=== PATIENT | female | born 1995 | race Caucasian/White ===

== ENCOUNTER 2024-05-10 14:26 | Emergency (ER) | payer MEDICAID, SELFPAY ==
[2024-05-10 14:28] VITALS: BP 150/95; PULSE 90; RESP 16; TEMP 36.8; O2SAT 97; BMI 32.2
--- NOTE | 2024-05-10 14:29 | ED_ITS ---
<Statement entered by Bailey Yousif DO - 05/10/24 17:55> I was consulted by the JAYESH, and we discussed the complexity of the problems being addressed. I approved the treatment and management plan for this patient's care in the emergency department, thus performing a substantive portion of the medical decision making. Bailey Yousif DO Discharge Plan Disposition Patient Disposition: Home, Self-Care Condition: Good Referrals Follow up/Referrals: Wallace Morataya DO [Staff Physician] - See instructions Provider,Referral, [Primary Care Provider] - See instructions Activity Restrictions/Add. Instructions Additional Instructions/Restrictions: Please utilize the crutches with walking boot to prevent injury. I have given you the number of Dr. Morataya the orthopedic surgeon. Please call and make your appointment in the morning. Follow-up with your PCP for no improvement worsening signs or symptoms or return to the ER as needed. Continue using ice Tylenol and Motrin to help control your swelling and pain. Keep leg elevated. Take an aspirin a day while you are utilizing the walking boot. Clinical Impressions Clinical Impression: Closed fracture of distal end of right fibula Qualifiers: Encounter type: initial encounter Fracture morphology: unspecified fracture morphology Qualified Code(s): S82.831A - Other fracture of upper and lower end of right fibula, initial encounter for closed fracture Print Language Print Language: Faroese Discharge ED Provider: Livan Cervantes General Adult HPI General Chief complaint: Extremity Injury, Lower Stated complaint: AO fall 05/09 @0600, right ankle pain Time Seen by Provider: 05/10/24 14:29 History of Present Illness HPI narrative: Patient presents for evaluation of right ankle injury. Patient states that she slipped yesterday twisting her right ankle. She felt a pop however has been able to bear weight although it is very painful. She denies any numbness tin gling fever chills hemoptysis hematochezia melena nausea vomit diarrhea. She denies any other injury. It hurts worse today than it did yesterday. Started turning colors which is why she came to the ER. Related Data Allergies Allergy/AdvReac Type Severity Reaction Status Date / Time No Known Allergies Allergy Verified 05/10/24 14:35 [facility] Disclaimer: The information contained in this section may have been updated after the sharona ent was seen, as this information can be updated by other users. Social History Smoking Status: Never smoker alcohol intake: never current occupational status: employed Travel in the last 8 weeks: None ROS Obtained: Yes Systems reviewed as appropriate & no additional complaints except as documented Physical Exam General General appearance: alert and in no apparent distress Respiratory Respiratory exam: Present normal lung sounds bilaterally Cardiovascular Cardiovascular exam: Present regular rate Neurological Exam Neurological exam: Present alert and oriented X3 Medical Decision Making Medical Records Screening: Per USPSTF and CDC recommendations, given the prevalence of disease in our region, it is our hospital?s policy to screen for HIV and viral Hepatitis for all patients aged 18 and over and those with ongoing risk factors. Ned Inquiry Pt receiving controlled substance: No Vital Signs: 05/10/24 14:28 05/10/24 15:00 05/10/24 15:31 Temperature 98.3 F Temperature Source Oral Pulse Rate 87 69 Pulse Rate [Radial] 90 Respiratory Rate 16 Blood Pressure 136/87 142/72 H Blood Pressure [Right Arm] 150/95 H Blood Pressure Mean [Right Arm] 113 Blood Pressure Source [Right Arm] Automatic Cuff Blood Pressure Position [Right Arm] Sitting 02 Sat by Pulse Oximetry 97 96 97 Oxygen Delivery Method Room Air Room Air Room Air Orders (Tests/Meds): ED MEDICATIONS Discontinued Medications Generic Name Dose Route Start Last Admin Trade Name Freq PRN Reason Stop Dose Admin Acetaminophen 1,000 mg 05/10/24 14:48 05/10/24 14:59 Acetaminophen 500mg Tab PO 05/10/24 14:49 1,000 mg ONCE ONE Administration Ibuprofen 800 mg 05/10/24 14:48 05/10/24 14:59 Ibuprofen 400 Mg Tablet PO 05/10/24 14:49 800 mg ONCE ONE Administration Oxycodone HCl 5 mg 05/10/24 15:35 Oxycodone 5mg Immediate Release Tablet PO 05/10/24 15:36 ONCE ONE ORDERS Category Date Time Status Ankle XR -Right minimum 3 Views [XR ankle RT min 3V] Exams 05/10/24 14:47 Taken Stat Tibia/fibula XR right 2 views [XR tibia fibula RT 2V] Exams 05/10/24 15:22 Taken Stat Medical Decision Narrative: In summary patient is a 28-year-old female who presents to the emergency department for evaluation of right ankle injury. Patient is hemodynamically stable upon arrival, afebrile. Physical exam is remarkable for significant ecchymosis and swelling at the lateral malleolus of the right ankle. She is very tender to palpation and no definitive bony deformity can be felt. Patient is neurovascular intact distally. She has positive DP and PT pulses. She does have passive range of motion fully. Differential diagnosis includes sprain versus fracture. Initial workup will be conducted with plain film x-rays. Initial interventions include Tylenol Motrin oxycodone. Initial workup reviewed by me shows a comminuted distal fibula fracture via my informal interpretation prior to radiology read. Given the distal fracture I have ordered an additional image to rule out any proximal fibular or tibia injury. My informal interpretation that film shows no other acute fracture. Given this patient is appropriate discharge being placed in a orthopedic walking boot with crutches and referral to orthopedics. Critical Care Critical Care Time Critical Care Time: No
--- NOTE | 2024-05-10 14:47 | XR_ITS ---
FINAL REPORT CLINICAL HISTORY: Twisted ankle, lateral malleolus pain COMPARISON: None FINDINGS: RIGHT ANKLE 3 views of the right ankle were obtained. There is a mildly displaced oblique fracture of the distal fibula occurring above the level of the ankle mortise. There is also a nondisplaced fracture of the posterior malleolus. The medial malleolus is intact. The mortise is intact. Visualized joint spaces are normally aligned. Soft tissues are unremarkable. IMPRESSION: Distal fibular shaft and posterior malleolar fractures. Reviewed, Interpreted and Dictated by James Vázquez MD Transcribed by Julianne Melo Authenticated and [facility]
[2024-05-10] MEDS: ACETAMINOPHEN 500MG TAB 1000 MG PO (14:59)
[2024-05-10] MEDS: IBUPROFEN 400 MG TABLET 800 MG PO (14:59)
[2024-05-10 15:00] VITALS: BP 136/87; PULSE 87; O2SAT 96
--- NOTE | 2024-05-10 15:22 | XR_ITS ---
FINAL REPORT CLINICAL HISTORY: Distal fibula fracture COMPARISON: None FINDINGS: Two views of the right tibia/fibula were obtained. There is an oblique fracture of the distal fibula. The tibia is intact. The joint spaces are intact. There is no soft tissue abnormality. IMPRESSION: Distal fibular fracture. Reviewed, Interpreted and Dictated by James Vázquez MD Transcribed by Julianne Melo Authenticated and [facility]
[2024-05-10 15:31] VITALS: BP 142/72; PULSE 69; O2SAT 97
[2024-05-10] MEDS: OXYCODONE 5MG IMMEDIATE RELEASE TABLET 5 MG PO (15:42)
[2024-05-10 15:58] VITALS: BP 142/72; PULSE 69; RESP 16; TEMP 36.8; O2SAT 97
== END 2024-05-10 15:59 | disposition home or self-care (01) ==
PROVIDERS: Emergency Provider Emergency Medicine
DX: S82.831A Other fracture of upper and lower end of right fibula, initial encounter for closed fracture (principal); M25.571 Pain in right ankle and joints of right foot; W01.0XXA Fall on same level from slipping, tripping and stumbling without subsequent striking against object, initial encounter; Y93.9 Activity, unspecified; Y92.9 Unspecified place or not applicable
CPT/HCPCS: 73590; 73610; 99283

== ENCOUNTER 2024-05-30 09:51 | Outpatient (CLI) | payer MEDICAID, SELFPAY ==
--- NOTE | 2024-05-30 09:55 | XR_ITS ---
FINAL REPORT CLINICAL HISTORY: rt ankle fx COMPARISON: 05/10/2024 FINDINGS: RIGHT ANKLE 3 views of the right ankle were obtained. The posterior malleolus and distal fibular fractures noted on the prior exam of 05/10/2024 remain present and are stable in appearance. The mortise is intact. Visualized joint spaces are normally aligned. The soft tissue swelling is slightly improved since the prior exam. IMPRESSION: Stable fractures of the posterior malleolus and distal fibula when compared with prior exam of 05/10/2024. Slight improvement in ankle soft tissue swelling. Reviewed, Interpreted and Dictated by Rick Lu MD Transcribed by Beulah Silva Authenticated and . [facility]
== END 2024-05-30 23:59 | disposition home or self-care (01) ==
LOC: RAD 09:52
PROVIDERS: Visit Provider Physician Assistant
DX: M25.571 Pain in right ankle and joints of right foot (principal)
CPT/HCPCS: 73610

== ENCOUNTER 2024-06-20 09:40 | Outpatient (CLI) | payer MEDICAID, SELFPAY ==
--- NOTE | 2024-06-20 09:43 | XR_ITS ---
FINAL REPORT CLINICAL HISTORY: Right ankle fx COMPARISON: 05/30/2024 FINDINGS: Three views of the right ankle redemonstrate an oblique fracture of the distal fibula with up to 2 mm of displacement. Reported posterior malleolus fracture is not well seen. The ankle mortise is intact. The joint spaces appear normal. IMPRESSION: No significant change in distal fibular fracture. Reviewed, Interpreted and Dictated by James Vázquez MD Transcribed by Julianne Melo Authenticated and [facility]
== END 2024-06-20 23:59 | disposition home or self-care (01) ==
LOC: RAD 09:41
PROVIDERS: Visit Provider Physician Assistant
DX: M25.571 Pain in right ankle and joints of right foot (principal); S82.831A Other fracture of upper and lower end of right fibula, initial encounter for closed fracture
CPT/HCPCS: 73610

== ENCOUNTER 2024-07-11 09:30 | Outpatient (CLI) | payer MEDICAID, SELFPAY ==
--- NOTE | 2024-07-11 09:33 | XR_ITS ---
FINAL REPORT CLINICAL HISTORY: Right fib fx COMPARISON: 06/20/2024 FINDINGS: Three views of the right ankle show a healing oblique fracture of the distal fibula with callus formation noted. There is mild displacement which is stable measuring up to 2 mm. The ankle mortise is intact. The joint spaces appear normal. IMPRESSION: Interval development of callus formation indicating ongoing fracture healing. Reviewed, Interpreted and Dictated by James Vázquez MD Transcribed by Julianne Melo Authenticated and [facility]
== END 2024-07-11 23:59 | disposition home or self-care (01) ==
LOC: RAD 09:31
PROVIDERS: Visit Provider Physician Assistant Surgical
DX: M25.571 Pain in right ankle and joints of right foot (principal); S82.831A Other fracture of upper and lower end of right fibula, initial encounter for closed fracture
CPT/HCPCS: 73610

== ENCOUNTER 2024-08-08 08:20 | Outpatient (CLI) | payer MEDICAID, SELFPAY ==
--- NOTE | 2024-08-08 08:24 | XR_ITS ---
FINAL REPORT CLINICAL HISTORY: rt ankle pain, nki COMPARISON: 07/11/2024 FINDINGS: RIGHT ANKLE 3 views of the right ankle were obtained. There is no acute fracture or dislocation. There has been interval healing of previously seen lateral malleolar fracture. The mortise is intact. Visualized joint spaces are normally aligned. Soft tissues are unremarkable. IMPRESSION: Interval healing of previously seen lateral malleolar fracture. Reviewed, Interpreted and Dictated by Krista Taylor MD Transcribed by Karissa Santizo Authenticated and [facility]
== END 2024-08-08 23:59 | disposition home or self-care (01) ==
LOC: RAD 08:21
PROVIDERS: Visit Provider Physician Assistant Surgical
DX: M25.571 Pain in right ankle and joints of right foot (principal)
CPT/HCPCS: 73610